=== PATIENT | male | born 1950 | race Caucasian/White ===

== ENCOUNTER 2021-01-14 10:27 | Emergency (ER) | payer MEDICARE, SELFPAY ==
[2021-01-14 11:00] VITALS: BP 150/68; PULSE 56; RESP 18; TEMP 36.7; O2SAT 100
[2021-01-14 11:11] VITALS: BP 150/68; PULSE 56; RESP 18; TEMP 36.7; O2SAT 100
--- NOTE | 2021-01-14 11:56 | ED.EYEPROB ---
HPI - Eye Problem General Chief complaint: Eye Problems Stated complaint: irritation on right eye Time Seen by Provider: 01/14/21 11:50 Source: patient and RN notes reviewed Mode of arrival: ambulatory Limitations: no limitations History of Present Illness HPI Narrative: Patient presents today complaining of right eye redness since yesterday morning. States there is some improvement in symptoms today. Denies any injury, pain, itching, vision changes, foreign body sensation. He has been using some sterile saline drops without improvement in appearance. He is not on blood thinners. Denies drainage from the eye. chief complaint: eye redness Related Data Home Medications Medication Instructions Recorded Confirmed No Home Medications 01/14/21 01/14/21 Allergies Allergy/AdvReac Type Severity Reaction Status Date / Time AMOXICILLIN TRIHYDRATE Allergy rash Uncoded 01/14/21 10:52 Review of Systems Review of Systems: Narrative: CONSTITUTIONAL: Denies body aches, fever, chills, or sweats. EYES: Denies visual changes, or discharge. + Right eye redness ENT: Denies rhinorrhea, congestion, sore throat, or otalgia. CARDIOVASCULAR: Denies chest pain, palpitations, or edema. RESPIRATORY: Denies cough or dyspnea. GASTROINTESTINAL: Denies abdominal pain, nausea, vomiting, or diarrhea. GENITOURINARY: Denies dysuria or hematuria. SKIN: Denies rash, itching, or wounds. MUSCULOSKELETAL: Denies back pain, joint pain, or myalgia. NEUROLOGIC: Denies headache, numbness, tingling, or weakness. PSYCH: Denies depression or anxiety. PMFSH Comments At time of signature, I have reviewed and agree with nursing past medical, surgical, social and family history unless otherwise noted. Please see nursing chart for further information. There is no relevant family history pertinent to the presenting complaint Exam Narrative: Exam Narrative: GENERAL: Well-appearing, well-nourished, and in no acute distress. HEAD: Normocephalic, atraumatic. EYES: EOMI. PERRL. Right eye with subconjunctival hemorrhage along the lower quarter of the eye. No additional redness, drainage, apparent injury noted. Lids and lashes normal bilaterally. Left eye normal ENT: Mucous membranes pink and moist. NECK: Normal AROM. CHEST: No respiratory distress. EXTREMITIES: Normal range of motion. No edema. SKIN: Warm, dry, no rash. Capillary refill normal. Normal skin turgor. NEURO: No focal deficits. Alert and oriented x3. Gait steady. PSYCH: Normal affect. No signs of depression or anxiety. Course Vital Signs Vital signs: Vital Signs Temperature 98.1 F 01/14/21 11:00 Pulse Rate 56 L 01/14/21 11:00 Respiratory Rate 18 01/14/21 11:00 Blood Pressure 150/68 H 01/14/21 11:00 Pulse Oximetry 100 01/14/21 11:00 Temperature 98.1 F 01/14/21 11:11 Pulse Rate 56 L 01/14/21 11:11 Respiratory Rate 18 01/14/21 11:11 Blood Pressure 150/68 H 01/14/21 11:11 Pulse Oximetry 100 01/14/21 11:11 Reviewed. Pt has been instructed to follow up with his PCP regarding his elevated blood pressure today. MDM - Eye Problem Differential Diagnosis Differential diagnosis: Likely corneal abrasion, conjunctivitis and subconjunctival hemorrhage Critical Care Time Critical Care Time Critical Care Time: No Discharge Plan Discharge Clinical Impression: Subconjunctival hemorrhage Qualifiers: Laterality: right Qualified Code(s): H11.31 - Conjunctival hemorrhage, right eye Patient Disposition: Home, Self-Care Condition: Stable Instructions: Subconjunctival Hemorrhage (ED) Additional Instructions: The redness in your eyes due to a broken blood vessel. This will heal over the next week or 2. Please follow-up with your PCP or eye doctor with any additional concerns. Your blood pressure was elevated above 120/80 today at Urgent Care. This puts you above the threshold for follow up. Please schedule a followup visit with your personal physician
== END 2021-01-14 12:00 | disposition home or self-care (01) ==
PROVIDERS: Emergency Provider Nurse Practitioner; PCP Internal Medicine
DX: H11.31 Conjunctival hemorrhage, right eye (principal)
CPT/HCPCS: 99202; G0463

== ENCOUNTER 2021-05-20 10:49 | Emergency (ER) | payer MEDICARE, SELFPAY ==
[2021-05-20 10:55] VITALS: BP 139/73; PULSE 65; RESP 18; TEMP 37.1; O2SAT 97
--- NOTE | 2021-05-20 11:13 | ED.URI ---
HPI - URI/Sore Throat General Chief Complaint: Upper Respiratory Infection Stated Complaint: Congestion Time Seen by Provider: 05/20/21 11:04 Source: patient and RN notes reviewed Mode of arrival: ambulatory Limitations: no limitations History of Present Illness HPI Narrative: Patient presents today with a 2-week history of nasal congestion that has been significantly worse since last night. 1 week ago patient finished a course of azithromycin that was prescribed by his PCP, without improvement of symptoms. Patient has been using oxymetazoline nasal spray 3-4 times per day over the past 2 weeks. MD elicited complaint: nasal congestion Related Data Home Medications Medication Instructions Recorded Confirmed tadalafil 5 mg PO DAILY 05/20/21 05/20/21 Allergies Allergy/AdvReac Type Severity Reaction Status Date / Time ampicillin Allergy Mild Rash Verified 05/20/21 11:06 Review of Systems Review of Systems: Narrative: CONSTITUTIONAL: Denies body aches, fever, chills, or sweats. EYES: Denies visual changes, redness, or discharge. ENT: Denies rhinorrhea, sore throat, or otalgia.+ Nasal congestion CARDIOVASCULAR: Denies chest pain, palpitations, or edema. RESPIRATORY: Denies cough or dyspnea. GASTROINTESTINAL: Denies abdominal pain, nausea, vomiting, or diarrhea. GENITOURINARY: Denies dysuria or hematuria. SKIN: Denies rash, itching, or wounds. MUSCULOSKELETAL: Denies back pain, joint pain, or myalgia. NEUROLOGIC: Denies headache, numbness, tingling, or weakness. PSYCH: Denies depression or anxiety. [facility] Past Medical History Medical History (Updated 05/20/21 @ 11:22 by Eliz Hernandes, [facility], ) Prostate cancer Surgical History Surgical History (Updated 05/20/21 @ 11:22 by Eliz Hernandes, [facility], ) H/O prostatectomy Comments At time of signature, I have reviewed and agree with nursing past medical, surgical, social and family history unless otherwise noted. Please see nursing chart for further information. There is no relevant family history pertinent to the presenting complaint Exam Narrative: Exam Narrative: GENERAL: Well-appearing, well-nourished, and in no acute distress. HEAD: Normocephalic, atraumatic. EYES: EOMI. No redness or drainage. Conjunctivae normal. ENT: Mucous membranes pink and moist. Nares congested. Bilateral nasal turbinates are nonerythematous, but severely edematous with clear nasal drainage. TMs normal bilaterally. Throat normal. Uvula midline. NECK: Normal AROM. Supple. No lymphadenopathy. CHEST: No respiratory distress. Clear to auscultation. HEART: Regular rate and rhythm. No murmur appreciated. Normal peripheral pulses. EXTREMITIES: Normal range of motion. No edema. SKIN: Warm, dry, no rash. Capillary refill normal. Normal skin turgor. NEURO: No focal deficits. Alert and oriented x3. Gait steady. PSYCH: Normal affect. No signs of depression or anxiety. Course Vital Signs Vital signs: Vital Signs Temperature 98.7 F 05/20/21 10:55 Pulse Rate 65 05/20/21 10:55 Respiratory Rate 18 05/20/21 10:55 Blood Pressure 139/73 05/20/21 10:55 Pulse Oximetry 97 05/20/21 10:55 Temperature 98.7 F 05/20/21 10:55 Pulse Rate 65 05/20/21 10:55 Respiratory Rate 18 05/20/21 10:55 Blood Pressure 139/73 05/20/21 10:55 Pulse Oximetry 97 05/20/21 10:55 Reviewed. Pt has been instructed to follow up with his PCP regarding his elevated blood pressure today. MDM - URI/Sore Throat Differential Diagnosis Differential diagnosis: Likely upper respiratory infection, sinusitis and other (Rhinitis, rhinitis medicamentosa) Critical Care Time Critical Care Time Critical Care Time: No Discharge Plan Discharge Clinical Impression: Rhinitis medicamentosa Patient Disposition: Home, Self-Care Condition: Stable Additional Instructions: Your symptoms are due to overuse of your nasal spray. Please stop using it immediately. It may take up to 2 weeks f
== END 2021-05-20 11:20 | disposition home or self-care (01) ==
PROVIDERS: Emergency Provider Nurse Practitioner; PCP Internal Medicine
DX: J31.0 Chronic rhinitis (principal); T44.991A Poisoning by other drug primarily affecting the autonomic nervous system, accidental (unintentional), initial encounter; Z85.46 Personal history of malignant neoplasm of prostate; Z90.79 Acquired absence of other genital organ(s)
CPT/HCPCS: 99211; G0463

== ENCOUNTER 2021-12-10 01:37 | Day surgery (SDC) | payer MEDICARE, SELFPAY ==
[2021-12-01 10:05] VITALS: BMI 23.7
[2021-12-10 10:21] VITALS: BP 143/58; PULSE 67; RESP 21; O2SAT 100
[2021-12-10] MEDS: LACTATED RINGERS 1,000 ML 150 ML IV CONT (10:37)
--- NOTE | 2021-12-10 11:22 | PM.HPGS ---
History of Present Illness History of Present Illness Consent: Risks, benefits, and alternatives have been discussed and questions answered. Patient agrees to proceed with procedure. Chief complaint: neoplasm screening Narrative: Eric Rivas is a 71 year old male Referred for colon cancer screening. His last colonoscopy was 10 years ago Review of Systems Review of Systems: All systems reviewed & are unremarkable except as noted in HPI and below PMFSH Past Medical History Medical History Prostate cancer Surgical History Surgical History H/O prostatectomy Social History Social History Smoking status: Never smoker Alcohol intake: current Alcohol use details: 2X monthly Living arrangements: with family Spiritual care concerns: No Meds Home Medications and Allergies Home Medications Medication Instructions Recorded Confirmed Type tadalafil 20 mg PO DAILY PRN 12/01/21 12/10/21 History Allergies Allergy/AdvReac Type Severity Reaction Status Date / Time ampicillin Allergy Mild Rash Verified 12/10/21 10:20 Vital Signs Vital Signs - 24 hr 12/10/21 10:21 Pulse Rate 67 Respiratory Rate 21 H Blood Pressure 143/58 H Pulse Oximetry 100 Exam Resp: Auscultation: clear to auscultation bilaterally Cardio: Rate: regular rate Rhythm: regular rhythm GI: GI Palp: Yes Soft to palpation and No Tenderness to palpation present (GI) Assessment and Plan Assessment and plan (1) Colon cancer screening: Code(s): Z12.11 - Encounter for screening for malignant neoplasm of colon Status: Acute Assessment and Plan: Colonoscopy with possible biopsy or polypectomy or cautery or injection of substances.
[2021-12-10 11:47] VITALS: BP 99/58; PULSE 60; RESP 15; O2SAT 96
[2021-12-10 11:57] VITALS: BP 105/72; PULSE 57; RESP 12; O2SAT 98
[2021-12-10 12:07] VITALS: BP 114/63; PULSE 61; RESP 20; O2SAT 100
== END 2021-12-10 12:24 | disposition home or self-care (01) ==
PROVIDERS: PCP Internal Medicine; Visit Provider Internal Medicine Gastroenterology
PROC: 0DJD8ZZ Inspection of Lower Intestinal Tract, Via Natural or Artificial Opening Endoscopic (ICD-10-PCS; CPT 45378; principal; 2021-12-10 11:30)
DX: Z12.11 Encounter for screening for malignant neoplasm of colon (principal); K57.30 Diverticulosis of large intestine without perforation or abscess without bleeding; Z85.46 Personal history of malignant neoplasm of prostate
CPT/HCPCS: G0121; J2704; J7120

== ENCOUNTER 2023-06-21 15:34 | Emergency (ER) | payer MEDICARE, SELFPAY ==
[2023-06-21 15:38] VITALS: BP 153/72; PULSE 74; RESP 20; TEMP 36.3; O2SAT 98
--- NOTE | 2023-06-21 15:59 | ED.SKABFB ---
HPI - Skin/Abscess/Foreign Bdy General Chief complaint: Skin/Abscess/Foreign Body Stated complaint: left hip tick bite Time Seen by Provider: 06/21/23 15:54 Source: patient and RN notes reviewed Mode of arrival: ambulatory Limitations: no limitations History of Present Illness HPI narrative: 73-year-old male presents with concern for tick bite. Reports he pulled the tick off of his posterior left upper thigh 2 weeks ago. Reports he developed to red bumps next to the tick bite 2 days later. Reports the 3 areas have been there since the take by and have not changed in nature. Reports they are red, nontender not itchy, is not draining any purulent drainage. He brings the take in with him in a plastic bag. He denies any general malaise, fever, joint pain, body aches, chills, sweats, fever. He denies any other rash MD complaint: insect bite/sting Related Data Home Medications Medication Instructions Recorded Confirmed No Home Medications 06/21/23 06/21/23 Allergies Allergy/AdvReac Type Severity Reaction Status Date / Time ampicillin Allergy Mild Rash Verified 06/21/23 15:52 Review of Systems Review of Systems: CONSTITUTIONAL: Denies malaise, chills, sweats, or fever. EYES: Denies redness, or discharge. ENT: Denies rhinorrhea, congestion, swollen lips, swollen tongue CARDIOVASCULAR: Denies chest pain, palpitations, or edema. RESPIRATORY: Denies cough or dyspnea. GASTROINTESTINAL: Denies abdominal pain, nausea, vomiting SKIN: Reports tick bite on the left posterior upper thigh with to erythematous papules next to it MUSCULOSKELETAL: Denies joint pain or myalgia. NEUROLOGIC: Denies headache. All systems reviewed & are unremarkable except as noted in HPI and below PMFSH Past Medical History Medical History Prostate cancer Surgical History Surgical History H/O prostatectomy Social History Social History Smoking status: Never smoker Alcohol intake: current Alcohol use details: 2X monthly Living arrangements: with family Spiritual care concerns: No Comments At time of signature, agree with nursing past medical, surgical, social and family history. There is no relevant family history pertinent to the presenting complaint Exam Narrative: GENERAL: Well-appearing, well-nourished, and in no acute distress. HEAD: Normocephalic, atraumatic. EYES: PERRLA, conjunctivae clear, and EOMI. ENT: Mucous membranes moist. Oropharynx without edema, erythema or lesions. NECK: Supple. No lymphadenopathy CHEST: Clear to auscultation. No respiratory distress. HEART: Regular rate and rhythm. SKIN: Warm, dry. Three raised erythematous papules on the left posterior upper thigh, 1 with a central scab, nonfluctuant, nontender without surrounding rash, induration, erythema NEURO: Alert and oriented x3. PSYCH: Normal mood and affect Course Course Emergency Course: Tick was definitively identified to be a [employer] which does not carry Lyme disease. Patient is not having any general ill symptoms, no viral symptoms. Patient was advised to put a warm compress on the spots on the back of his leg, they do not appear at this time to be infected or cellulitic. Patient was instructed on signs to look for for when to seek re-evaluation. Patient is aware of diagnosis, understands and agrees to treatment plan. Anticipatory guidance given. Patient agrees to follow-up as directed and is aware of reasons to seek care at the emergency department. Portions of this record may have been created with voice recognition software Level of Care: Express Care Visit Vital Signs Vital signs: Vital Signs Temperature 97.3 F L 06/21/23 15:38 Pulse Rate 74 06/21/23 15:38 Respiratory Rate 20 06/21/23 15:38 Blood Pressure 153/72 H 06/21/23 15:38 Pulse Oximetry 98
== END 2023-06-21 16:04 | disposition home or self-care (01) ==
PROVIDERS: Emergency Provider Nurse Practitioner; PCP Internal Medicine
DX: S70.362A Insect bite (nonvenomous), left thigh, initial encounter (principal); W57.XXXA Bitten or stung by nonvenomous insect and other nonvenomous arthropods, initial encounter; Z85.46 Personal history of malignant neoplasm of prostate; Z90.79 Acquired absence of other genital organ(s)
CPT/HCPCS: 99212; G0463

== ENCOUNTER 2023-08-13 08:31 | Emergency (ER) | payer MEDICARE, SELFPAY ==
[2023-08-13 08:35] VITALS: BP 149/73; PULSE 81; RESP 16; TEMP 36.4; O2SAT 96
--- NOTE | 2023-08-13 09:00 | ED.EAR ---
HPI - Ear Problem General Chief complaint: Ear Stated complaint: left ear ache History of Present Illness HPI Narrative: Patient presents with left ear pain. No drainage from ear no hearing loss. Related Data Allergies Allergy/AdvReac Type Severity Reaction Status Date / Time ampicillin Allergy Mild Rash Verified 08/13/23 08:49 Review of Systems Review of Systems: CONSTITUTIONAL: Denies chills, or sweats. Reports fever and generalized body aches EYES: Denies visual changes, redness, or discharge. ENT: Denies otalgia. Reports nasal congestion runny nose and sore throat CARDIOVASCULAR: Denies chest pain, palpitations, or edema. RESPIRATORY: Denies dyspnea. Reports occasional cough GASTROINTESTINAL: Denies abdominal pain, nausea, vomiting, or diarrhea. GENITOURINARY: Denies dysuria or hematuria. SKIN: Denies rash or itching. MUSCULOSKELETAL: Denies back pain, joint pain, or myalgia. Reports generalized body aches NEUROLOGIC: Denies headache, numbness, or weakness. PSYCHIATRIC: Denies anxiety or depression. [facility] Past Medical History Medical History Prostate cancer Surgical History Surgical History H/O prostatectomy Social History Social History Smoking status: Never smoker Alcohol intake: current Alcohol use details: 2X monthly Living arrangements: with family Spiritual care concerns: No Comments At time of signature, agree with nursing past medical, surgical, social and family history. There is no relevant family history pertinent to the presenting complaint Exam Narrative: The patient is a well-developed, well-nourished in no acute distress. SKIN: Skin is warm and dry without erythema, swelling or exudate. There is good turgor. No tenting. HEAD: Atraumatic. Normocephalic. No temporal or scalp tenderness. EYES: Moist and bright. Sclera and conjunctivae normal. No discharge. PERRLA. Extraocular motions intact. Gross visual acuity intact. EARS: Pinna is normal shape and contour. Clear external auditory canals. TM pearly garcias with good cone of light, no erythema or suppuration. Bilateral cerumen noted no gross hearing deficit. NOSE: pink, moist mucosa with good air movement. Clear rhinorrhea without nasal flaring. Septum midline. Mouth: moist mucous membranes. THROAT; mild erythema noted to posterior oropharynx with moderate postnasal drainage. Without exudate or ulceration.. Uvula midline. Normal movement of soft palate. NECK: Supple and nontender with full range of motion without discomfort. No meningeal signs. LUNGS: Equal and bilateral breath sounds without wheezes, rales or rhonchi. CHEST: The chest wall is without retractions or use of accessory muscles. HEART: Has a regular rate and rhythm without murmur, gallops, click or rub. ABDOMEN: Soft, nontender with positive active bowel sounds. No rebound tenderness. EXTREMITIES: Without cyanosis, clubbing or edema. Equal 2+ distal pulses and 2 second capillary refill noted. NEUROLOGIC: alert, active, . The patient moves all extremities with normal muscle strength. Normal muscle tone is noted. Normal coordination is noted. NO focal neurological findings noted. HENMT: Ears: Abnormal EAC present erythema on the left and edema Course Course Level of Care: Express Care Visit Vital Signs Vital signs: Vital Signs Temperature 36.4 C L 08/13/23 08:35 Pulse Rate 81 08/13/23 08:35 Respiratory Rate 16 08/13/23 08:35 Blood Pressure 149/73 H 08/13/23 08:35 Pulse Oximetry 96 08/13/23 08:35 Oxygen Delivery Room Air 08/13/23 08:35 Temperature 36.4 C L 08/13/23 08:35 Pulse Rate 81 08/13/23 08:35 Respiratory Rate 16 08/13/23 08:35 Blood Pressure 149/73 H 08/13/23 08:35 Pulse Oximetry 96 08/13/23 08:35 Oxygen Delivery Room Air 08/13/23 08:35 [facility]
== END 2023-08-13 09:05 | disposition home or self-care (01) ==
PROVIDERS: Emergency Provider Nurse Practitioner Family; PCP Internal Medicine
DX: H60.92 Unspecified otitis externa, left ear (principal); Z85.46 Personal history of malignant neoplasm of prostate
CPT/HCPCS: 99213; G0463